=== PATIENT | male | born 2000 | race Caucasian/White ===

== ENCOUNTER 2023-12-29 23:29 | Emergency (ER) | payer OTHER ==
[~2023-12-29] VITALS: Ht 172.7 cm; Wt 73.9 kg
[2023-12-30 03:15] VITALS: O2SAT 100
[2023-12-30 03:16] VITALS: BP 128/61; TEMP 97.6
== END 2023-12-30 03:22 | disposition home or self-care (01) ==
LOC: M ED 23:29
DX: S80.811A Abrasion, right lower leg, initial encounter (principal); F17.200 Nicotine dependence, unspecified, uncomplicated; F10.10 Alcohol abuse, uncomplicated; Y92.019 Unspecified place in single-family (private) house as the place of occurrence of the external cause; Y93.89 Activity, other specified; Y99.9 Unspecified external cause status